=== PATIENT | female | born 1965 | race African-American/Black ===

== ENCOUNTER 2016-08-11 01:06 | Emergency (ER) | payer OTHER ==
[~2016-08-11] VITALS: Ht 172.7 cm; Wt 99.0 kg
[~2016-08-11 01:06] MED LIST: AMOXICILLIN500 MG OR; ANTIVERT PO; ASPIRIN81 MG PO; BENTYL10 MG OR; CIPRO500 MG OR; CIPRO500 MG PO; CIPROFLOXACN500 MG PO; ENALAPRIL5 MG OR; FLAGYL500 MG OR; FLEXERIL OR; HYDROCHLOROT25 MG PO; LISINOPRIL20 MG PO; LOSARTAN POT50 MG PO; LOSARTAN POTASS50 MG PO; MEDDOSEPAK OR; MEDDOSEPAK PO; NAPROSYN500 MG OR; NAPROSYN500 MG PO; NORVASC10 M1 OR; NORVASC5 MG OR; RONDE1 OR; TORADOL OR; ULTRAM50 M1 PO; ULTRAM50 MG OR; ZOFRAN ODT4 MG PO; [UNRECOGNIZED DRUG - OTHER] OR
[2016-08-11 02:38] LABS: IMMATURE GRANULOCYTES 0.3 % (0.0-1.0); MEAN CELL VOLUME 84.8 fL CALC (80.0-100.0); MEAN CORPUSCULAR HGB 27.6 pG CALC (26.0-32.0); MEAN CORPUSCULAR HGB CONC 32.6 g/L CALC (32.0-36.0); NEUT# 4.63 thou/uL (2.00-7.15); RED BLOOD COUNT 5.07 mill/uL (4.20-5.60); RED CELL DISTRI WIDTH 14.7 % (11.5-15.5)
[2016-08-11 02:41] LABS: URINE BILIRUBIN - DIPSTICK NEGATIVE (NEGATIVE); URINE BLOOD DIPSTICK MODERATE (NEGATIVE); URINE CLARITY CLEAR; URINE COLOR YELLOW; URINE GLUCOSE - DIPSTICK NEGATIVE (NEGATIVE); URINE KETONE NEGATIVE (NEGATIVE); URINE LEUK ESTERASE TRACE (NEGATIVE); URINE NITRITE - DIPSTICK NEGATIVE (Negative); URINE PH 5.5 (4.5-8.0); URINE PROTEIN - DIPSTICK NEGATIVE (NEG-TRACE); URINE UROBILINOGEN - DIPSTICK 0.2 E.U./dL (0.2)
[2016-08-11 02:47] LABS: ALKALINE PHOSPHATASE 77 u/l (38-126); ANION GAP 19 (6-22 (CALC)); BILIRUBIN, TOTAL 0.9 mg/dL (0.0-1.4); BUN 15 mg/dL (7-17); BUN/CREATININE RATIO 23 (12-20 (CALC)); CALCIUM 10.2 mg/dL (8.4-10.2); CARBON DIOXIDE 26 mmol/l (22-30); CHLORIDE 101 mmol/l (95-108); CREATININE 0.7 mg/dL (0.5-1.0); GFR > 60 ML/MIN (>=60 (CALC)); GFR FOR AFR.AMER. > 60 ML/MIN (>=60 (CALC)); GLUCOSE 103 mg/dL (65-105); POTASSIUM 3.4 mmol/l (3.5-5.1); SGOT/AST 32 u/l (14-36); SGPT/ALT 49 u/l (9-52); SODIUM 143 mmol/l (137-146); TOTAL PROTEIN 9.2 g/dL (6.3-8.2)
[2016-08-11 02:51] LABS: URINE SQUAMOUS EPITHELIAL CELL RARE EPI/hpf (0-FEW); URINE WBC 0-2 WBC/hpf (0-5)
[2016-08-11 03:00] LABS: INFLUENZA A NONE DETECTED (NONE DETECT); INFLUENZA B NONE DETECTED (NONE DETECT)
[2016-08-11] MEDS ORDERED: AUGMENTIN875TAB PO (04:28)
[2016-08-11 04:30] VITALS: BP 128/59
== END 2016-08-11 04:50 | disposition home or self-care (01) | DRG 153 ==
LOC: ED 01:06
PROVIDERS: Emergency Medicine
DX: J02.0 Streptococcal pharyngitis (principal); R09.81 Nasal congestion; R05 Cough; M79.1 Myalgia

== ENCOUNTER 2016-11-23 13:50 | Emergency (ER) | payer SELFPAY ==
[~2016-11-23] VITALS: Ht 172.7 cm; Wt 99.0 kg
[~2016-11-23 13:50] MED LIST changes: +AUGMENTIN875TAB PO
[2016-11-23 15:18] LABS: HEMATOCRIT 39.3 % (37.0-47.0); HEMOGLOBIN 12.8 g/dl (12.0-16.0); IMMATURE GRANULOCYTES 0.5 % (0.0-1.0); MEAN CELL VOLUME 85.2 fL CALC (80.0-100.0); MEAN CORPUSCULAR HGB 27.8 pG CALC (26.0-32.0); MEAN CORPUSCULAR HGB CONC 32.6 g/L CALC (32.0-36.0); NEUT# 3.58 thou/uL (2.00-7.15); RED BLOOD COUNT 4.61 mill/uL (4.20-5.60); RED CELL DISTRI WIDTH 14.3 % (11.5-15.5)
[2016-11-23 15:32] LABS: ALBUMIN 4.7 g/dL (3.2-5.0); ALKALINE PHOSPHATASE 66 u/l (38-126); ANION GAP 15 (6-22 (CALC)); BILIRUBIN, TOTAL 0.8 mg/dL (0.0-1.4); BUN 14 mg/dL (7-17); BUN/CREATININE RATIO 18 (12-20 (CALC)); CALCIUM 9.7 mg/dL (8.4-10.2); CARBON DIOXIDE 26 mmol/l (22-30); CHLORIDE 105 mmol/l (95-108); CREATININE 0.8 mg/dL (0.5-1.0); GFR > 60 ML/MIN (>=60 (CALC)); GFR FOR AFR.AMER. > 60 ML/MIN (>=60 (CALC)); GLUCOSE 102 mg/dL (65-105); POTASSIUM 3.1 mmol/l (3.5-5.1); SGOT/AST 27 u/l (14-36); SGPT/ALT 46 u/l (9-52); SODIUM 143 mmol/l (137-146); TOTAL PROTEIN 8.6 g/dL (6.3-8.2)
[2016-11-23 15:43] LABS: MYOGLOBIN 152 ng/mL (0 - 62)
[2016-11-23] MEDS ORDERED: HYZAAR1 TA2 PO (16:18)
[2016-11-23] MEDS ORDERED: POTASSIUM CHLO20 ME1 PO (16:39)
[2016-11-23 16:55] VITALS: BP 145/86
== END 2016-11-23 17:01 | disposition home or self-care (01) | DRG 313 ==
LOC: ED 13:50
PROVIDERS: Family Medicine
DX: R07.89 Other chest pain (principal); I10 Essential (primary) hypertension; J45.909 Unspecified asthma, uncomplicated

== ENCOUNTER 2019-02-01 19:46 | Emergency (ER) | payer OTHER ==
[~2019-02-01] VITALS: Ht 172.7 cm; Wt 96.2 kg
[~2019-02-01 19:46] MED LIST changes: +HYZAAR1 TA2 PO; +POTASSIUM CHLO20 ME1 PO
[2019-02-01] MEDS ORDERED: DIOVAN HCT160 MG/25 PO (20:17)
[2019-02-01 20:43] LABS: HEMATOCRIT 39.9 % (37.0-47.0); IMMATURE GRANULOCYTES 0.5 % (0.0-5.0); MEAN CELL VOLUME 84.9 fL CALC (80.0-100.0); MEAN CORPUSCULAR HGB 27.7 pG CALC (26.0-32.0); MEAN CORPUSCULAR HGB CONC 32.6 g/L CALC (32.0-36.0); NEUT# 5.13 thou/uL (2.00-7.15); RED BLOOD COUNT 4.7 mill/uL (4.20-5.60); RED CELL DISTRI WIDTH 14.6 % (11.5-15.5)
[2019-02-01 21:00] LABS: URINE BILIRUBIN - DIPSTICK NEGATIVE (NEGATIVE); URINE BLOOD DIPSTICK SMALL (NEGATIVE); URINE COLOR YELLOW; URINE GLUCOSE - DIPSTICK NEGATIVE (NEGATIVE); URINE KETONE NEGATIVE (NEGATIVE); URINE LEUK ESTERASE TRACE (NEGATIVE); URINE NITRITE - DIPSTICK NEGATIVE (Negative); URINE PH 5.5 (4.5-8.0); URINE PROTEIN - DIPSTICK NEGATIVE (NEG-TRACE); URINE UROBILINOGEN - DIPSTICK 0.2 E.U./dL (0.2)
[2019-02-01 21:10] LABS: MYOGLOBIN 225 ng/mL (0 - 62)
[2019-02-01 21:18] LABS: ALBUMIN 4.9 g/dL (3.2-5.0); ALKALINE PHOSPHATASE 79 u/l (38-126); ANION GAP 15 (6-22 (CALC)); BILIRUBIN, TOTAL 0.9 mg/dL (0.0-1.4); BUN 14 mg/dL (7-17); BUN/CREATININE RATIO 21 (12-20 (CALC)); CARBON DIOXIDE 29 mmol/l (22-30); CHLORIDE 101 mmol/l (95-108); CREATININE 0.7 mg/dL (0.5-1.0); GFR > 60 ML/MIN (>=60 (CALC)); GFR FOR AFR.AMER. > 60 ML/MIN (>=60 (CALC)); SGOT/AST 36 u/l (14-36); SODIUM 141 mmol/l (137-146); TOTAL PROTEIN 8.6 g/dL (6.3-8.2)
[2019-02-01 21:34] LABS: URINE SQUAMOUS EPITHELIAL CELL FEW EPI/hpf (0-FEW)
[2019-02-01] MEDS ORDERED: K-DUR/KLOR-CON20 MEQ PO (21:57)
[2019-02-01 22:06] VITALS: BP 140/90
== END 2019-02-01 22:06 | disposition home or self-care (01) | DRG 305 ==
LOC: ED 19:46
PROVIDERS: Family Medicine
DX: I10 Essential (primary) hypertension (principal); E87.6 Hypokalemia

== ENCOUNTER 2019-07-01 21:44 | Emergency (ER) | payer OTHER ==
[~2019-07-01 21:44] MED LIST changes: +DIOVAN HCT160 MG/25 PO; +K-DUR/KLOR-CON20 MEQ PO
[2019-07-01 22:44] VITALS: BP 163/109
== END 2019-07-01 23:09 | disposition left against medical advice (07) | DRG 951 ==
LOC: ED 21:44 → LWOBS 23:08
DX: Z53.21 Procedure and treatment not carried out due to patient leaving prior to being seen by health care provider (principal)

== ENCOUNTER 2020-03-19 14:39 | Emergency (ER) | payer OTHER ==
[~2020-03-19] VITALS: Ht 172.7 cm; Wt 100.0 kg
[2020-03-19] MEDS ORDERED: HYDROCO/APAP1 TA9 PO (16:52)
[2020-03-19 17:21] VITALS: BP 137/83
== END 2020-03-19 17:21 | disposition home or self-care (01) | DRG 563 ==
LOC: ED 14:39
PROC: 2W3RX1Z Immobilization of Left Lower Leg using Splint (ICD-10-PCS; principal; 2020-03-19)
DX: S82.62XA Displaced fracture of lateral malleolus of left fibula, initial encounter for closed fracture (principal); I10 Essential (primary) hypertension; W01.0XXA Fall on same level from slipping, tripping and stumbling without subsequent striking against object, initial encounter; Y92.009 Unspecified place in unspecified non-institutional (private) residence as the place of occurrence of the external cause

== ENCOUNTER 2020-08-07 | Emergency (ER) | payer OTHER ==
[~2020-08-07] MED LIST changes: +HYDROCO/APAP1 TA9 PO
[2020-08-07 21:55] LABS: URINE BILIRUBIN - DIPSTICK NEGATIVE (NEGATIVE); URINE BLOOD DIPSTICK LARGE (NEGATIVE); URINE GLUCOSE - DIPSTICK NEGATIVE (NEGATIVE); URINE KETONE NEGATIVE (NEGATIVE); URINE LEUK ESTERASE NEGATIVE (Negative); URINE NITRITE - DIPSTICK NEGATIVE (Negative); URINE PROTEIN - DIPSTICK >=300 mg/dL (NEG-TRACE)
[2020-08-07 21:56] LABS: URINE CLARITY BLOODY; URINE COLOR RED
[2020-08-07 21:58] LABS: URINE RBC TNTC RBC/hpf (0-5)
[2020-08-07 23:24] LABS: HEMATOCRIT 35.4 % (37.0-47.0); HEMOGLOBIN 11.3 g/dl (12.0-16.0); IMMATURE GRANULOCYTES 0.4 % (0.0-5.0); MEAN CELL VOLUME 85.7 fL CALC (80.0-100.0); MEAN CORPUSCULAR HGB 27.4 pG CALC (26.0-32.0); MEAN CORPUSCULAR HGB CONC 31.9 g/dL CAL (32.0-36.0); NEUT# 10.11 thou/uL (2.00-7.15); RED BLOOD COUNT 4.13 mill/uL (4.20-5.60); RED CELL DISTRI WIDTH 14.7 % (11.5-15.5)
[2020-08-07 23:37] LABS: ALKALINE PHOSPHATASE 84 u/l (38-126); ANION GAP 10 (6-22 (CALC)); BILIRUBIN, TOTAL 0.9 mg/dL (0.0-1.4); BUN 14 mg/dL (7-17); BUN/CREATININE RATIO 19 (12-20 (CALC)); CARBON DIOXIDE 27 mmol/l (22-30); CHLORIDE 103 mmol/l (95-108); CREATININE 0.7 mg/dL (0.5-1.0); GFR > 60 ML/MIN (>=60 (CALC)); GFR FOR AFR.AMER. > 60 ML/MIN (>=60 (CALC)); POTASSIUM 3.1 mmol/l (3.5-5.1); SGOT/AST 21 u/l (14-36); SODIUM 137 mmol/l (137-146); TOTAL PROTEIN 7.5 g/dL (6.3-8.2)
[2020-08-08] MEDS ORDERED: MACRODANTIN100 MG PO (01:25)
[2020-08-08] MEDS ORDERED: LOSARTAN POTASS25 MG PO (02:03)
[2020-08-08] MEDS ORDERED: HYDROCHLOROT25 MG PO (02:04)
== END 2020-08-08 01:40 | disposition home or self-care (01) | DRG 690 ==
PROVIDERS: Emergency Medicine
DX: N34.2 Other urethritis (principal); R31.9 Hematuria, unspecified; I10 Essential (primary) hypertension; J45.909 Unspecified asthma, uncomplicated; Z87.440 Personal history of urinary (tract) infections
CPT/HCPCS: Q9967

== ENCOUNTER 2021-04-28 22:53 | Emergency (ER) | payer SELFPAY ==
[~2021-04-28] VITALS: Ht 172.7 cm; Wt 100.0 kg
[~2021-04-28 22:53] MED LIST changes: +LOSARTAN POTASS25 MG PO; +MACRODANTIN100 MG PO
[2021-04-29 01:05] VITALS: BP 116/87
== END 2021-04-29 01:15 | disposition home or self-care (01) | DRG 179 ==
LOC: ED 22:53
DX: U07.1 COVID-19 (principal); I10 Essential (primary) hypertension; J45.909 Unspecified asthma, uncomplicated

== ENCOUNTER 2021-07-03 17:27 | Emergency (ER) | payer SELFPAY ==
[~2021-07-03] VITALS: Ht 172.7 cm; Wt 95.0 kg
[2021-07-03 17:38] VITALS: BP 131/94
[2021-07-03 18:00] VITALS: BP 119/88
[2021-07-03 18:15] VITALS: BP 124/82
[2021-07-03 18:30] VITALS: BP 128/85
[2021-07-03 18:33] VITALS: BP 128/85
== END 2021-07-03 18:39 | disposition home or self-care (01) | DRG 921 ==
LOC: ED 17:27
DX: T81.31XA Disruption of external operation (surgical) wound, not elsewhere classified, initial encounter (principal); Y83.8 Other surgical procedures as the cause of abnormal reaction of the patient, or of later complication, without mention of misadventure at the time of the procedure; I10 Essential (primary) hypertension; J45.909 Unspecified asthma, uncomplicated; Z87.440 Personal history of urinary (tract) infections

== ENCOUNTER 2021-10-03 17:01 | Emergency (ER) | payer SELFPAY ==
[~2021-10-03] VITALS: Ht 172.7 cm; Wt 95.0 kg
[2021-10-03 18:38] VITALS: BP 117/80
== END 2021-10-03 19:01 | disposition home or self-care (01) | DRG 556 ==
LOC: ED 17:01
DX: M25.562 Pain in left knee (principal); I10 Essential (primary) hypertension; J45.909 Unspecified asthma, uncomplicated; W01.0XXA Fall on same level from slipping, tripping and stumbling without subsequent striking against object, initial encounter; Y92.009 Unspecified place in unspecified non-institutional (private) residence as the place of occurrence of the external cause
CPT/HCPCS: L1830

== ENCOUNTER 2021-10-11 21:12 | Emergency (ER) | payer SELFPAY ==
[~2021-10-11] VITALS: Ht 172.7 cm; Wt 95.0 kg
[2021-10-11 21:44] VITALS: BP 144/99
[2021-10-11 21:45] VITALS: BP 149/99
[2021-10-11 22:00] VITALS: BP 124/82
[2021-10-11 22:15] VITALS: BP 129/85
[2021-10-11 22:21] LABS: HEMATOCRIT 37.7 % (37.0-47.0); IMMATURE GRANULOCYTES 0.3 % (0.0-5.0); MEAN CELL VOLUME 86.1 fL CALC (80.0-100.0); MEAN CORPUSCULAR HGB 27.4 pG CALC (26.0-32.0); MEAN CORPUSCULAR HGB CONC 31.8 g/dL CAL (32.0-36.0); NEUT# 4.72 thou/uL (2.00-7.15); RED BLOOD COUNT 4.38 mill/uL (4.20-5.60)
[2021-10-11] MEDS ORDERED: HYDROCODONE POLISTIR PO (23:01)
[2021-10-11] MEDS ORDERED: VENTOLIN HFA IN (23:01)
--- NOTE | 2021-10-11 23:12 | NUR ---
BREATHING TX GIVEN.
[2021-10-11 23:23] VITALS: BP 129/85
== END 2021-10-11 23:35 | disposition home or self-care (01) | DRG 153 ==
LOC: ED 21:12
PROVIDERS: Family Medicine
DX: J06.9 Acute upper respiratory infection, unspecified (principal); I10 Essential (primary) hypertension; J45.909 Unspecified asthma, uncomplicated; Z87.440 Personal history of urinary (tract) infections; Z20.822 Contact with and (suspected) exposure to COVID-19

== ENCOUNTER 2023-01-07 19:28 | Emergency (ER) | payer BC ==
[~2023-01-07] VITALS: Ht 172.7 cm; Wt 95.7 kg
[~2023-01-07 19:28] MED LIST changes: +HYDROCODONE POLISTIR PO; +VENTOLIN HFA IN
[2023-01-07] MEDS ORDERED: MEDDOSEPAK PO (23:38)
[2023-01-07] MEDS ORDERED: VENTOLIN HFA108 MCG IN (23:38)
[2023-01-08 00:21] VITALS: BP 156/88
== END 2023-01-08 00:21 | disposition home or self-care (01) | DRG 192 ==
LOC: ED 19:28
DX: J44.1 Chronic obstructive pulmonary disease with (acute) exacerbation (principal); I10 Essential (primary) hypertension; Z20.822 Contact with and (suspected) exposure to COVID-19

== ENCOUNTER 2023-11-12 20:06 | Emergency (ER) | payer OTHER ==
[2023-11-12] VITALS (10 sets, daily range): BP systolic 131–166; BP diastolic 78–94
[~2023-11-12] VITALS: Ht 172.7 cm; Wt 70.0 kg
[~2023-11-12 20:06] MED LIST changes: +BENZONATATE200 MG PO; +VENTOLIN HFA108 MCG IN; +ZPAK PO
[2023-11-12] MEDS ORDERED: PROMETHAZINE HCL 25 MG/ML AMP IV ONE (20:25)
[2023-11-12] MEDS ORDERED: DEXAMETHASONE SOD. PHOSPHATE 10 MG/ML VIAL IV ONE (20:25)
[2023-11-12] MEDS ORDERED: KETOROLAC TROMETHAMINE 30 MG/ML SDV IV ONE (20:25)
[2023-11-12] MEDS ORDERED: cloNIDine HCL 0.1 MG/TAB PO ONE (20:25)
[2023-11-12] MEDS ORDERED: SODIUM CHLORIDE 0.9% 1,000 ML IV ONE (20:25)
[2023-11-12] MEDS ORDERED: ACETAMINOPHEN 500 MG TAB PO ONE (20:25)
[2023-11-12 20:56] LABS: BASO% 0.6 % (0-3); HEMATOCRIT 37.8 % (37.0-47.0); HEMOGLOBIN 12.4 g/dl (12.0-16.0); IMMATURE GRANULOCYTES 0.1 % (0.0-5.0); LYMPH% 33.4 % (15-41); MEAN CELL VOLUME 86.1 fL CALC (80.0-100.0); MEAN CORPUSCULAR HGB 28.2 pG CALC (26.0-32.0); MEAN CORPUSCULAR HGB CONC 32.8 g/dL CAL (32.0-36.0); MONO% 6.5 % (2-13); NEUT# 3.88 thou/uL (2.00-7.15); NEUT% 54.4 % (42-76); RED BLOOD COUNT 4.39 mill/uL (4.20-5.60); RED CELL DISTRI WIDTH 13.9 % (11.5-15.5)
[2023-11-12] MEDS ORDERED: COZAAR50 MG PO (21:04)
[2023-11-12 21:07] LABS: ALBUMIN 4.1 g/dL (3.2-5.0); BILIRUBIN, TOTAL 0.8 mg/dL (0.02-1.3); CREATININE 0.8 mg/dL (0.5-1.0); POTASSIUM 3.1 mmol/l (3.5-5.1); TOTAL PROTEIN 7.4 g/dL (6.3-8.2)
[2023-11-12] MEDS ORDERED: POTASSIUM CHLORIDE 20 MEQ/TAB PO ONE (21:45)
[2023-11-12 21:46] LABS: URINE BILIRUBIN - DIPSTICK Negative (NEGATIVE); URINE BLOOD DIPSTICK Moderate (NEGATIVE); URINE GLUCOSE - DIPSTICK Negative (NEGATIVE); URINE KETONE Negative (NEGATIVE); URINE PROTEIN - DIPSTICK Negative (NEG-TRACE)
[2023-11-12 21:47] LABS: URINE COLOR Yellow; URINE LEUK ESTERASE Moderate (NEGATIVE); URINE NITRITE - DIPSTICK Positive (Negative)
[2023-11-12 21:53] LABS: URINE BACTERIA MODERATE hpf; URINE RBC 0-2 RBC/hpf (0-5)
[2023-11-12 21:54] LABS: URINE SQUAMOUS EPITHELIAL CELL MODERATE EPI/hpf (0-FEW)
[2023-11-12] MEDS ORDERED: LOSARTAN POTAS100 MG PO (22:57)
[2023-11-12] MEDS ORDERED: BACTRIM DS1 TAB PO (22:57)
[2023-11-12] MEDS ORDERED: SULFAMETHOXAZOLE W/TRIMETHOPRI 1 COMBO TAB PO ONE (23:00)
[2023-11-14] MEDS ORDERED: KEFLEX500 MG PO (11:27)
== END 2023-11-13 00:10 | disposition home or self-care (01) | DRG 103 ==
LOC: ED 20:06
PROVIDERS: Family Medicine
DX: R51.9 Headache, unspecified (principal); N39.0 Urinary tract infection, site not specified; B96.20 Unspecified Escherichia coli [E. coli] as the cause of diseases classified elsewhere; I10 Essential (primary) hypertension; K51.90 Ulcerative colitis, unspecified, without complications; J45.909 Unspecified asthma, uncomplicated; Z87.440 Personal history of urinary (tract) infections; Z20.822 Contact with and (suspected) exposure to COVID-19

== ENCOUNTER 2023-12-17 19:56 | Emergency (ER) | payer OTHER ==
[~2023-12-17] VITALS: Ht 172.7 cm; Wt 117.9 kg
[~2023-12-17 19:56] MED LIST changes: +BACTRIM DS1 TAB PO; +COZAAR50 MG PO; +KEFLEX500 MG PO; +LOSARTAN POTAS100 MG PO
[2023-12-17] MEDS ORDERED: KETOROLAC TROMETHAMINE 30 MG/ML SDV IM ONE (20:30)
[2023-12-17] MEDS ORDERED: PENicillin V POTASSIUM 500 MG/TAB PO ONE (20:30)
[2023-12-17] MEDS ORDERED: NAPROXEN500 MG PO (20:33)
[2023-12-17] MEDS ORDERED: TRAMADOL HYDROC50 M1 PO (20:33)
[2023-12-17] MEDS ORDERED: PENICILLN VK500 MG PO (20:33)
[2023-12-17 21:08] VITALS: BP 156/96
== END 2023-12-17 21:09 | disposition home or self-care (01) | DRG 159 ==
LOC: ED 19:56
DX: K04.7 Periapical abscess without sinus (principal); I10 Essential (primary) hypertension